=== PATIENT | male | born 2000 | race Caucasian/White ===

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

== ENCOUNTER 2020-08-26 18:45 | Emergency (ER) | payer MEDICAID ==
[~2020-08-26] VITALS: Ht 190.5 cm; Wt 72.6 kg
[2020-08-26 18:58] VITALS: BP 133/86
--- NOTE | 2020-08-26 19:28 | Diagnostic Imaging Report ---
INDICATION: Trauma, right shoulder pain. COMPARISON: None. FINDINGS: Three views of the right shoulder demonstrate no fracture or dislocation. Articular surfaces are normal. No osseous lesion. IMPRESSION: Negative right shoulder. Dictated by: Dictated on workstation # [id number]
[2020-08-26] MEDS ORDERED: IBUPROFEN 600 MG (MOTRIN) TAB PO ONE (20:00)
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
== END 2020-08-26 20:04 | disposition home or self-care (01) ==
LOC: EDUNIT# 18:45 → ER FS 18:46
DX: S46.911A Strain of unspecified muscle, fascia and tendon at shoulder and upper arm level, right arm, initial encounter (principal); F17.210 Nicotine dependence, cigarettes, uncomplicated; W22.8XXA Striking against or struck by other objects, initial encounter
CPT/HCPCS: 73030